=== PATIENT | female | born 1970 | race Caucasian/White ===

== ENCOUNTER 2017-02-02 12:12 | Outpatient (CLI) | payer OTHER | END 2017-02-02 12:13 | disposition home or self-care (01) | DX: M22.42 Chondromalacia patellae, left knee (principal); M25.462 Effusion, left knee ==

== ENCOUNTER 2017-02-13 16:35 | Outpatient (CLI) | payer OTHER | END 2017-02-13 16:36 | disposition home or self-care (01) | DX: M25.562 Pain in left knee (principal) ==

== ENCOUNTER 2020-02-25 09:59 | Outpatient (CLI) | payer BC ==
--- NOTE | 2020-02-25 17:48 | XRAY Report ---
Reason: RIGHT FOOT PAIN Procedure Date: 02/25/2020 Accession Number: [id number] / [id number] Procedure: XR - Foot 3 View RT CPT Code: Final Report FULL RESULT: EXAM: RIGHT FOOT RADIOGRAPHY EXAM DATE: 02/25/2020 10:13 AM. CLINICAL HISTORY: RIGHT FOOT PAIN. COMPARISON: FOOT 3 VIEW RT 07/28/2013 2:36 PM. TECHNIQUE: 3 views. FINDINGS: Bones: 2 Elmo screws of the distal right fifth metatarsal shaft suggesting a healed varus osteotomy, as before. Mild flattening of the lateral aspect of the fifth metatarsal head suggesting prior bunionectomy, unchanged. Bipartite medial and lateral first metatarsal sesamoids. No fracture or focal bone lesion. Moderate well-corticated nonspecific plantar calcaneal enthesophyte, similar to before. Joints: Normal. No subluxations. Soft Tissues: Normal. No significant soft tissue swelling. IMPRESSION: 1. No significant change from 2012. 2. Nonspecific moderate plantar calcaneal enthesophyte, as before. 3. Healed valgus osteotomy and bunionectomy at the right fifth metatarsal, as before. RADIA
== END 2020-02-25 10:00 | disposition home or self-care (01) ==
LOC: DI 09:59
PROVIDERS: ATTEND Internal Medicine
DX: M77.31 Calcaneal spur, right foot (principal)

== ENCOUNTER 2021-07-13 12:35 | Outpatient (CLI) | payer BC ==
--- NOTE | 2021-07-13 13:08 | XRAY Report ---
PROCEDURE: Chest 2 View X-Ray INDICATIONS: COUGH TECHNIQUE: 2 views of the chest. COMPARISON: None. FINDINGS: Surgical changes and devices: None. Lungs and pleura: No pleural effusions or pneumothorax. Lungs are clear. Mediastinum: Mediastinal contours are normal. Heart size is normal. Bones and chest wall: No suspicious bony abnormalities. Soft tissues appear unremarkable. IMPRESSION: No acute cardiopulmonary abnormality. Reviewed by: Bijan Muhammad MD on 07/13/2021 1:06 PM PDT Approved by: Bijan Muhammad MD on 07/13/2021 1:06 PM PDT Station ID: [id number]
== END 2021-07-13 12:36 | disposition home or self-care (01) ==
LOC: DI 12:35
PROVIDERS: ATTEND Internal Medicine
DX: R05 Cough (principal)

== ENCOUNTER 2024-05-22 12:36 | Outpatient (CLI) | payer BC ==
[2024-05-22 13:05] LABS: CREATININE 0.7 mg/dL (0.6-1.3)
== END 2024-05-22 12:37 | disposition home or self-care (01) ==
LOC: LAB 12:36
PROVIDERS: ATTEND Internal Medicine
DX: Z51.81 Encounter for therapeutic drug level monitoring (principal); Z79.899 Other long term (current) drug therapy
CPT/HCPCS: 36415; 82565

== ENCOUNTER 2024-05-22 13:24 | Outpatient (CLI) | payer BC ==
[2024-05-22] MEDS ORDERED: DIATRIZOATE MEGLU/DIATRIZO SOD 30 ML BOTTLE PO ONE (13:30)
[2024-05-22] MEDS ORDERED: iohexoL-300 100 ML VIAL ONE ×2 (13:30→14:59)
--- NOTE | 2024-05-22 15:42 | CT Report ---
PROCEDURE: Abdomen/Pelvis W INDICATIONS: ABDOMINAL PAIN CONTRAST: 100ml omni 300 TECHNIQUE: After the administration of intravenous and oral contrast, a CT scan of the abdomen and pelvis was pe rformed. Images were recorded and evaluated at appropriate window settings. Reformats: coronal and sa gittal. For radiation dose reduction, the following was used: automated exposure control, adjustment of mA and/or kV according to patient size. COMPARISON: None. FINDINGS: Image quality: Diagnostic. Lower chest: Unremarkable. Liver: No solid mass. Gallbladder: No radiopaque stones or wall thickening. Biliary tree: No intrahepatic or extrahepatic dilation, accounting for age. Spleen: No splenomegaly. Pancreas: No pancreatic ductal dilation. Adrenals: No adrenal nodule. Kidneys and ureters: No hydronephrosis. No renal cystic lesion which requires follow up. No solid mas s. Stomach, bowel and peritoneum: There is no bowel obstruction. Postsurgical changes are seen from prio r gastric bypass. There is no abnormal bowel wall thickening or mesenteric fat stranding. No abscess collection. No free fluid of free air. Lymph nodes: No central or retroperitoneal adenopathy. Vessels: No infrarenal aortic aneurysm. Patent portal vein. PELVIS Reproductive organs: Unremarkable. Bladder: No abnormal wall thickening, accounting for underdistention. Pelvic lymph nodes: No pelvic adenopathy by size criteria. Bones: No aggressive osseous abnormality. Other: No significant ventral or inguinal hernia. IMPRESSION: 1. Prior gastric bypass. No bowel obstruction or abnormal bowel wall thickening. No abscess collectio n. No free fluid of free air. 2. No finding to explain patient's symptoms. Reviewed by: Raheem Benitez MD on 05/22/2024 3:41 PM PDT Approved by: Raheem Benitez MD on 05/22/2024 3:41 PM PDT Station ID: [id number]
== END 2024-05-22 13:25 | disposition home or self-care (01) ==
LOC: DI 13:24
PROVIDERS: ATTEND Internal Medicine
DX: R10.9 Unspecified abdominal pain (principal); Z98.84 Bariatric surgery status; Z51.81 Encounter for therapeutic drug level monitoring; Z79.899 Other long term (current) drug therapy
CPT/HCPCS: 74177; Q9963; Q9967; 36415; 82565

== ENCOUNTER 2024-05-26 08:51 | Outpatient (CLI) | payer BC ==
--- NOTE | 2024-05-27 10:50 | Mammography Report ---
BILATERAL DIGITAL SCREENING MAMMOGRAM 3D/2D: 05/26/2024 CLINICAL: Routine screening. Comparison is made to exam dated: 01/27/2015 mammogram - [facility]. Both breasts are almost entirely fatty (category a/<25% glandular tissue). No significant masses, calcifications, or other findings are seen in either breast. There has been no significant interval change. IMPRESSION: NEGATIVE There is no mammographic evidence of malignancy. A 1 year screening mammogram is recommended. Based on the Tyrer Cuzick model (a risk assessment model) the patient's lifetime risk is 5.7% and her 10 year risk is 1.6%. According to the ACR, ACS, and NCCN guidelines, an annual breast MRI exam jaylan g with mammogram is recommended if the patient's lifetime risk is 20% or greater. This exam was interpreted at Station ID: [id number]. NOTE: For mammograms, a report in lay terms will be sent to the patient. Approximately 15% of breast malignancies will not be visualized mammographically. In the management of a palpable breast mass, a negative mammogram must not discourage biopsy of a clinically suspicious lesion. Electronically Signed By: Beatriz zacarias/tara:05/26/2024 10:03:49 letter sent: No_Letter ACR BI-RADS Category 1: Negative 3341F PARENCHYMAL PATTERN: (F) - The breast(s) demonstrate(s) diffuse fatty replacement. BI-RADS CATEGORY: (1) - 1 RECOMMENDATION: (ANNUAL) - Recommend routine annual screening mammography. [id number] 1 year screening LATERALITY: (B)
== END 2024-05-26 08:52 | disposition home or self-care (01) ==
LOC: DI 08:51
PROVIDERS: ATTEND Internal Medicine
DX: Z12.31 Encounter for screening mammogram for malignant neoplasm of breast (principal)

== ENCOUNTER 2024-09-20 12:04 | Inpatient (IN) ==
[2024-09-20] MEDS: ONDANSETRON 4 MG/2 ML VIAL IVP STA (12:47)
[2024-09-20] MEDS: SODIUM CHLORIDE 0.9% 1,000 ML IV STA (12:48)
[2024-09-20 12:53] LABS: BASOPHILS % (AUTO) 0.3 %; EOSINOPHILS # (AUTO) 0.1 10^3/uL (0.0-0.7); EOSINOPHILS % (AUTO) 0.8 %; LYMPHOCYTES # (AUTO) 1.4 10^3/uL (1.5-3.5); LYMPHOCYTES % (AUTO) 12.8 %; MEAN CORPUSCULAR HEMOGLOBIN 25.3 pg (27.0-31.0); MEAN CORPUSCULAR HGB CONC 30.1 g/dL (32.0-36.0); MEAN CORPUSCULAR VOLUME 84.1 fL (81.0-99.0); MEAN PLATELET VOLUME 9.9 fL (7.9-10.8); MONOCYTES # (AUTO) 0.6 10^3/uL (0.0-1.0); MONOCYTES % (AUTO) 5.4 %; NEUTROPHILS # (AUTO) 8.9 10^3/uL (1.5-6.6); NEUTROPHILS % (AUTO) 79.6 %; NRBC ABSOLUTE COUNT (AUTO) 0.03 x10^3/uL; NUCLEATED RED BLOOD CELLS AUTO 0.3 /100WBC; PLT - PLATELET COUNT 311 10^3/uL (130-450); RED CELL DISTRIBUTION WIDTH 17.2 % (12.0-15.0); WHITE BLOOD COUNT 11.1 x10^3/uL (4.8-10.8)
--- NOTE | 2024-09-20 12:54 | ED Physician Documentation ---
History of Present Illness Stated complaint Stated Complaint: DIZZINESS,NAUSEA Chief complaint Chief Complaint: Neuro History obtained from History obtained from: Patient Additonal information Additional information: The patient comes to the emergency department chief complaint of lightheadedness and generalized weakness for the last couple of days. She states that she was recently diagnosed with shingles and that she has been on medications for this over the last for 7 days. She states however that after a couple of days she felt as though she was having a bad reaction to the meds. She states she just f elt dizzy and like she was "not right". She did not have any itching, rash, or swelling. She does not know exactly which medication she was on but she was taken off of the med she had been prescribed for shingles and told to take Benadryl. The patient states she is just continue to feel worse and worse, however. She feels like she looks pale and she states that she can even walk her dog this morning because she was too tired and dizzy. The patient does note that 2 nights ago, she vomited about 3 times and noticed dark red blood in the vomitus. She states she then had diarrhea for about 24 hours and this also was suspicious to her because it was a dark blackish maroon color. She states she has no other history of anything like this. She has not been vomiting or having any diarrhea otherwise since. She is not on any anticoagulants. She has never had any issues with anemia previously. No history of any sort of bleeding disorder or internal bleeding. No other complaints at this time. Patient denies chest pain. Meds/Allgy Home Medications Ambulatory Orders Medication Instructions Recorded Confirmed amlodipine 5 mg tablet 5 mg PO DAILY 12/09/13 09/18/24 carvedilol 3.125 mg tablet 3.125 mg PO BID 12/09/13 09/18/24 acyclovir 800 mg tablet 800 mg PO 5XD 7 days #35 tabs 09/17/24 09/18/24 cyclosporine 0.05 % eye drops 1 drp ophthalmic (eye) Q12H 09/17/24 09/18/24 (Restasis MultiDose) ondansetron 4 mg disintegrating 4 mg PO Q6H PRN nausea and 09/18/24 09/18/24 tablet vomiting 7 days #28 tabs Allergies Allergies Allergy/AdvReac Type Severity Reaction Status Date / Time ceftriaxone Allergy Anaphylaxis Verified 09/20/24 12:21 cephalexin Allergy Anaphylaxis Verified 09/20/24 12:21 valacyclovir Allergy Hives Verified 09/20/24 12:21 [facility] Social History Social History Smoking Status: Never smoker Do you dip or chew tobacco?: No Relationship: Exam Constitutional no apparent distress The patient is in no distress but appears extremely pale. She is able to sit herself up in bed but does so with noted effort. HENMT normocephalic, head/scalp atraumatic, external nose normal and oral mucous membranes normal Eyes EOMs intact bilaterally and no scleral icterus Neck/C-Spine visual inspection normal and supple Respiratory breath sounds equal bilaterally, normal respiratory effort and clear to auscultation bilaterally Cardiovascular normal heart rate noted, regular rhythm noted and no edema 3 out of 6 systolic murmur Gastrointestinal abdomen normal to inspection, abdomen soft to palpation, nontender to palpation and nondistended Genitourinary no CVA tenderness Extremities normal to inspection Neurology Alert, grossly intact Psychiatry mental status grossly normal Skin Marked pallor of skin generally with pale nailbeds. Results Vitals Vitals: Vital Signs - 24 hr 09/20/24 12:19 09/20/24 12:21 09/20/24 12:51 Temperature 36.8 C Temperature Source Pulse Rate 80 79 Pulse Rate [Monitoring electrodes] Respiratory Rate 26 H 21 Blood Pressure 104/90 92/62 Blood Pressure [Brachial artery] O2 Saturation 89 L 99 Oxygen Delivery Method Nasal Cannula O2 Source Room air Nasal cannula If not protocol: Oxygen Flow, liters/minute 2 2 Sedation scale Pain Intensity 7 6 09/20/24 14:11 09/20/24 14:21 09/20/24 14:36 Temperature 36.4 C L 36.3 C L Temperature Source Temporal Artery Scan Temporal Artery Scan Pulse Rate 79 Pulse Rate [Monitoring electrodes] 80 79 Respiratory Rate 19 17 16 Blood Pressure 100/73 Blood Pressure [Brachial artery] 108/58 L 110/66 O2 Saturation 99 97 98 Oxygen Delivery Method O2 Source Nasal cannula Nasal cannula Nasal cannula If not protocol: Oxygen Flow, liters/minute 2 2 2 Sedation scale 0-Fully awake 0-Fully awake Pain Intensity 0 0 0 Oxygen O2 Source Nasal cannula EKG (time done) 1231: EKG releavant findings:: EKG personally interpreted by author of this note. Relevant findings are: Rate: Rate (enter#) (77) Rhythm: NSR [place]: Normal Intervals: Normal MT QRS: QRS normal Ischemia: Normal ST segments Compare to prior EKG: Old EKG unavailable Computer interpretation: Agree with computer Labs Labs: Laboratory Tests 09/20/24 09/20/24 12:30 13:00 WBC 11.1 H RBC 1.70 L Hgb 4.3 L* Hct 14.3 L* MCV 84.1 MCH 25.3 L MCHC 30.1 L RDW 17.2 H Plt Count 311 MPV 9.9 Neut # (Auto) 8.9 H Lymph # (Auto) 1.4 L [place] # (Auto) 0.6 Eos # (Auto) 0.1 Baso # (Auto) 0.0 Absolute Nucleated RBC 0.03 Nucleated RBC % 0.3 Sodium 133 L Potassium 4.3 Chloride 101 Carbon Dioxide 27 Anion Gap 5.0 L BUN 21 H Creatinine 0.8 Estimated GFR (MDRD) 75 L Glucose 182 H Calcium 8.1 L Total Bilirubin 0.3 AST 12 ALT 7 L Alkaline Phosphatase 55 Total Protein 5.2 L Albumin 3.3 Globulin 1.9 L Albumin/Globulin Ratio 1.7 Lipase 38 Blood Type O POSITIVE Blood Type Recheck O POSITIVE Antibody Screen NEGATIVE Crossmatch IS Only See Detail Rads (name of study) chest XR: Relevant Findings:: Final report received and See rad report Interpretation: neg PD Medical Decision Making ED course ED course: The patient was worked up with laboratory studies and initially given IV fluids and placed on oxygen as she did present with an oxygen saturation of 89%. Chest x-ray was also ordered. The patient CBC showed a hemoglobin of 4.3 with a normal white blood cell count and platelet count. Rectal exam was performed and patient had grossly melanotic stool with a positive bedside guaiac positive test performed by myself. The remainder of the patient's workup was unremarkable including negative chest x-ray. EKG showed normal sinus rhythm. The patient was started on a transfusion in the ED. I discussed the case with Dr. Lamb of surgery who stated that she would consult on the patient and probably plan to do EGD and colonoscopy. I discussed the case with the on-call hospitalist who agreed to admit the patient to her service. I have informed the patient of the findings and she is agreeable to the plan. Discharge Plan Discharge Patient Disposition: [facility] DC/Xfer Condition: Serious Clinical Impression: Severe anemia, Upper gastrointestinal bleed Prescriptions: No Action amlodipine 5 MG tablet 5 mg PO DAILY carvedilol 3.125 MG tablet 3.125 mg PO BID Restasis MultiDose 0.05 % drops 1 drp ophthalmic (eye) Q12H acyclovir 800 mg tablet 800 mg PO 5XD 7 Days Qty: 35 2RF Rx Instructions: space evenly during waking hours diphenhydramine HCl [Benadryl] 25 mg capsule 50 mg PO ONCE Qty: 2 0RF ondansetron 4 mg tablet,disintegrating 4 mg PO ONCE Qty: 1 0RF ondansetron 4 mg tablet,disintegrating 4 mg PO Q6H PRN (Reason: nausea and vomiting) 7 Days Qty: 28 0RF Rx Instructions: stay well hydrated Print Language: Nepalese
[2024-09-20 12:55] LABS: HCT - HEMATOCRIT 14.3 % (37.0-47.0); HGB - HEMOGLOBIN 4.3 g/dL (12.0-16.0)
--- NOTE | 2024-09-20 13:04 | XRAY Report ---
PROCEDURE: XR Chest 1V INDICATIONS: dyspnea TECHNIQUE: One view of the chest was acquired. COMPARISON: 07/13/2021 FINDINGS: Surgical changes and devices: None. Lungs and pleura: No pleural effusions or pneumothorax. Lungs are clear. Mediastinum: Mediastinal contours appear normal. Heart size is normal. Bones and chest wall: No suspicious bony lesions. Age-appropriate degenerative changes are seen. O verlying soft tissues appear unremarkable. IMPRESSION: Portable chest within normal limits for age. Reviewed by: Frankie Granados MD on 09/20/2024 12:02 PM [facility] Approved by: Frankie Granados MD on 09/20/2024 12:02 PM [facility] Station ID: [id number]
[2024-09-20 13:11] LABS: ALBUMIN 3.3 g/dL (3.2-5.5); ALBUMIN/GLOBULIN RATIO 1.7 (1.0-2.2); BILIRUBIN,TOTAL 0.3 mg/dL (0.2-1.0); CALCIUM 8.1 mg/dL (8.5-10.3); CREATININE 0.8 mg/dL (0.6-1.3); POTASSIUM 4.3 mmol/L (3.5-4.5); TOTAL PROTEIN 5.2 g/dL (6.4-8.9)
[2024-09-20] MEDS: PANTOPRAZOLE 80 MG in SODIUM CHLORIDE 0.9% 100ML 100 ML IV STA (14:22)
--- NOTE | 2024-09-20 15:05 | HISTORY & PHYSICAL EXAMINATION ---
Chief Complaint <Mahesh Mcnulty - Last Filed: 09/20/24 15:05> Chief Complaint Chief Complaint: nasuea and vomitting History of Present Illness <Mahesh Mcnulty - Last Filed: 09/20/24 15:05> Admitted From Admitted From:: Emergency room History Obtained From Records Reviewed: Expanse History obtained from: Patient Exam Limitations: none History of Present Illness HPI Comment/Other: 53 y/o female was admitted from the ER for lightheadedness and weakness for few days. Pt states she recently was diagnosed with shingles and she's taking acyclovir for treatment for the last 7 days. She started feeling weak though out last few days. She reports vomiting dark red blood on and then noticed dark red blood in her stool for the last 3 days. She doesn't have a history of smoking, excessive drinking, blooding disorder nor internal blooding. No SOB, no cough, no chest pain. 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 <Prosper Worthy MD - Last Filed: 09/20/24 15:29> History of Present Illness HPI Comment/Other: 53 y/o female with a history of hypertension was admitted from the ER for lightheadedness and weakness for few days. Patient states she recently was diagnosed with shingles after going to Urgent care. She received acyclovir on . She started feeling weak throughout the last few days. She reports vomiting dark red blood on (reports three episodes of emesis), which has now resolved. Following that, she noticed dark tarry stool for the last three days. She notes loose stools, multiple episodes (3-4/day) yesterday and today. She doesn't have a history of smoking, excessive drinking. She has no recent NSAID use, including Motrin, Aleve, etc. She has no history of GERD. She has not had a colonoscopy in the past. No SOB, no cough, no chest pain. 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 Meds/Allgy <Mahesh Mcnulty - Last Filed: 09/20/24 15:05> Home Medications Ambulatory Orders Medication Instructions Recorded Confirmed amlodipine 5 mg tablet 5 mg PO DAILY 12/09/13 09/18/24 carvedilol 3.125 mg tablet 3.125 mg PO BID 12/09/13 09/18/24 acyclovir 800 mg tablet 800 mg PO 5XD 7 days #35 tabs 09/17/24 09/18/24 cyclosporine 0.05 % eye drops 1 drp ophthalmic (eye) Q12H 09/17/24 09/18/24 (Restasis MultiDose) ondansetron 4 mg disintegrating 4 mg PO Q6H PRN nausea and 09/18/24 09/18/24 tablet vomiting 7 days #28 tabs Allergies Allergies Allergy/AdvReac Type Severity Reaction Status Date / Time ceftriaxone Allergy Anaphylaxis Verified 09/20/24 12:21 cephalexin Allergy Anaphylaxis Verified 09/20/24 12:21 valacyclovir Allergy Hives Verified 09/20/24 12:21 PFSH <Mahesh Mcnulty - Last Filed: 09/20/24 15:05> Medical History Medical History (Updated 09/20/24 @ 15:21 by Prosper Worthy MD) HTN (hypertension) Social History Social History Smoking Status: Never smoker Do you dip or chew tobacco?: No Relationship: POLST Patient has POLST: No POLST Status: Full Code Review of Systems <Mahesh Mcnulty - Last Filed: 09/20/24 15:05> Constitutional Reports: Fatigue Musculoskeletal Denies: Extremity pain Neurological Reports: General weakness Endocrine Reports: Fatigue <Prosper Worthy MD - Last Filed: 09/20/24 15:29> Constitutional Reports: Weakness and Poor appetite; Denies: Fever or Chills Eyes Denies: Pain, Irritation, Blurry vision, Field loss, Vision loss or Change in vision Ears, nose, mouth, and throat Reports: Dry mouth; Denies: Ear pain, Ear discharge, Hearing loss, Hearing aids, Post nasal drip or Throat swelling Cardiovascular Reports: lightheadedness; Denies: Irregular heart rate, chest pain, palpitations, edema, swelling of feet/ankles, Syncope or shortness of breath with exertion Respiratory Denies: Shortness of breath, Cough or Sputum production Gastrointestinal Reports: Nausea, Vomiting, Maikel blood emesis, Diarrhea, Rectal bleeding and Blood in stool; Denies: Abdominal pain, Abdominal distention, Poor appetite, Bile emesis, Coffee grounds in vomit, Heartburn, Constipation or Rectal pain Integumentary/Breast Reports: Rash (left thorax rash); Denies: Itching or Dryness Neurological Denies: Focal weakness, Weakness in extremities or Numbness in extremities Psychiatric Denies: Depression or Anxiety Hematologic/Lymphatic Reports: Anemia; Denies: Easy bruising or Easy bleeding Allergic/Immunologic Denies: Hives, Throat swelling or Tongue swelling <Prosper Worthy MD - Last Filed: 09/20/24 15:29> Prior Level of Functionality: Fully independent prior to admission. Exam <[facility]hesh [facility] - Last Filed: 09/20/24 15:05> Exam Pt not in any acute distress,looks her stated age, she looks extremely pale. Constitutional no apparent distress HENMT normocephalic and oral mucous membranes abnormal (oral mucous membrane and tongue looks dry ) Eyes PERRL and EOMs intact bilaterally Neck/C-Spine visual inspection normal Lymph no lymphadenopathy noted Chest inspection of chest normal Respiratory breath sounds equal bilaterally, normal respiratory effort and no wheezes Cardiovascular normal heart rate noted and regular rhythm noted Gastrointestinal abdomen normal to inspection, abdomen soft to palpation and nontender to palpation Genitourinary no CVA tenderness Back/Pelvis spine normal to inspection Extremities normal to inspection and normal to palpation 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 Skin skin color abnormal (She skin was extremely pale ) and rash noted (rash was notices on the left side of her flank, consistent with her hx) <Prosper Worthy MD - Last Filed: 09/20/24 15:29> Eyes conjunctivae abnormal (pallor) Respiratory no rales Gastrointestinal nondistended and no masses Neurology no movement abnormality noted, no focal motor deficit noted, no sensory deficits noted and speech normal Psychiatry oriented x3, thought process normal, cooperative and affect normal Skin rash noted (vesicular rash on L thorax,2x2cm) and no jaundice Conclusion/Plan <Mahesh Carleneliana - Last Filed: 09/20/24 15:05> Problem List (1) GI bleed: Qualifiers: GI bleed type/associated pathology: unspecified gastrointestinal hemorrhage type Qualified Code(s): K92.2 - Gastrointestinal hemorrhage, unspecified (2) Severe anemia: Plan: Her hemoglobin is at 4.3 on admission Plan: we will give her 2 unit of blood and continue to monitor (3) Leukocytosis: Qualifiers: Leukocytosis type: other Qualified Code(s): D72.828 - Other elevated white blood cell count (4) Shingles: Plan: rash was noticed on her left flank she has been taking a valacyclovir since 09/17. She attributes her issue to this mediation Plan: discontinue home medication Qualifiers: Herpes zoster complications: disseminated zoster Qualified Code(s): B 02.7 - Disseminated zoster (5) HTN (hypertension): Plan: Today her blood pressure is low at 108/58 Plan: We will discontinue her home medication for HTN Qualifiers: Hypertension type: primary hypertension Qualified Code(s): I10 - Essential (primary) hypertension Lab Results Lab results reviewed: Yes 09/20/24 12:30 09/20/24 12:30 Diagnostic Imaging Results Diagnostic Imaging Results: positive Final report reviewed EKG Results EKG Interpreted Independently: No <Prosper Worthy MD - Last Filed: 09/20/24 15:29> Problem List (1) GI bleed: Plan: - Patient reports vomiting bright red blood and dark tarry stool. - 2 units of blood ordered. H&H ordered every 8 hours. Transfuse for hemoglobin greater than 7. - 2 large bore IVs, fluid resuscitation, strict NPO. - Continue Protonix 40 mg BID IV. - Spoke with general surgeon, Dr Lamb, plan to perform EGD for further evaluation tomorrow. - DVT prophylaxis - SCDs at this time. (2) Severe anemia: Plan: - Due to above. Hb 4.3. 2 units of blood ordered. H&H ordered every 8 hours. Transfuse for hemoglobin greater than 7. - Iron studies ordered. (3) Leukocytosis: Plan: - Likely reactive to above process. Continue to trend. (4) Shingles: Plan: - Rash was noticed on her left flank she has been taking a valacyclovir since 09/17. She attributes her issue to this mediation. - Patient would like to discontinue home medication, continue to monitor. (5) HTN (hypertension): Plan: - Today her blood pressure is low at 108/58 in setting of active blood loss. Hold home Coreg and amlodipine at this time. Core Measures <Mahesh Mengmeng - Last Filed: 09/20/24 15:05> Anticipated LOS I expect patient to be DC'd or transferred within 96 hours.: No DVT/VTE - Prophylaxis VTE/DVT Device ordered at admit?: Yes Stroke - Rehab Assessment Rehab services assessment to be ordered?: Yes <Prosper Worthy MD - Last Filed: 09/20/24 15:29> DVT/VTE - Prophylaxis VTE/DVT Prophylaxis med ordered at admit?: No Not Ordered - Medical Reason: Contraindicated (GI bleed) Stroke - Rehab Assessment Rehab services assessment to be ordered?: No AMI - Statin at Admit Aspirin Prescribed on Admit: No Not Ordered - Medical Reason: Not indicated
--- NOTE | 2024-09-20 16:24 | PHARMACY PROGRESS NOTE ---
Best Possible Medication History Admit Date and Time: 09/20/24 [id number] Home Medications Medication Instructions Recorded Confirmed Type carvedilol 3.125 mg tablet 3.125 mg PO BID 12/09/13 09/20/24 History amlodipine 10 mg tablet 10 mg PO DAILY 09/20/24 09/20/24 History cyclosporine 0.05 % eye drops in a 1 drp ophthalmic (eye) BID 09/20/24 09/20/24 History dropperette Processed by: Pharmacy Medications reviewed in ED?: No Medication History completed: Yes Patient Interview: Completed Secondary Source(s): Pharmacy records and Insurance records [facility] Statement: As the person ultimately responsible for medication therapy, providers are able to order a medication from an existing home medication list in [facility] via the "Reconcile Routine" prior to Confirmation of that medication by manager support services. Such practice is discouraged except when the physician, in their clinical judgment, deems that a medical need exists for a medication without regard to previous use.
[2024-09-20] MEDS: LACTATED RINGERS 1,000 ML IV SCH (17:42)
[2024-09-20] MEDS: SODIUM CHLORIDE FLUSH 0.9% 10 ML SYRINGE IVP SCH (17:47)
--- NOTE | 2024-09-20 18:16 | CONSULTATION NOTE ---
History of Present Illness History of Present Illness HPI Comment/Other: 53yoF presented to the ED today for generalized weakness and lightheadedness, and on workup was subsequently found to be anemic to hgb 4 with recent history of hematemasis and dark tarry stools over the last 4 days. She had been treated for probable shingles (localized raised rash at left lateral rib cage, nontender) in the walk in clinic this past week, and she thought that her emesis was an allergic reaction to the valcyclovir. In the ED she had some soft SBPs into 90s-low 100s, no tachycardia, and initial SpO2 of 89. She was admitted to the hospitalist service for UGIB, started on IV protonix and 2U PRBC initiated (2nd unit going at my visit). She endorses feeling somewhat improved with the blood transfusion. She denies a history of GERD, heartburn or acid reflux, does not take antacids at home. She denies having epigastric pain now or in the past. It is a bit difficult to get a clear history from her, she denied taking any chronic medications to me, but she takes amlodipine and carvedilol, she denied surgeries to me other than a few foot surgeries, however on abdominal exam multiple laparoscopic scars were noted in the upper abdomen, at which point she endorsed a history of bariatric surgery in [place]. 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 She denies etoh or tobacco use, she endorses using only tylenol for pain, no NSAIDs. Denies a history of hematemesis in the past. [facility] Medical History Medical History (Updated 09/20/24 @ 18:08 by Ana Lamb DO) HTN (hypertension) Surgical History Surgical History (Updated 09/20/24 @ 18:08 by Ana Lamb DO) History of bariatric surgery History of foot surgery Social History Social History Smoking Status: Never smoker Second hand tobacco smoke exposure: No Do you dip or chew tobacco?: No Do you vape?: No Relationship: Level: Independent Do you feel safe in your home environment?: Yes Suffered physical, verbal, emotional, or financial abuse?: No POLST Patient has POLST: No POLST Status: Full Code Meds/Allgy Home Medications Ambulatory Orders Medication Instructions Recorded Confirmed carvedilol 3.125 mg tablet 3.125 mg PO BID 12/09/13 09/20/24 amlodipine 10 mg tablet 10 mg PO DAILY 09/20/24 09/20/24 cyclosporine 0.05 % eye drops in a 1 drp ophthalmic (eye) BID 09/20/24 09/20/24 dropperette sodium chloride 5 % eye ointment 1 applic ophthalmic (eye) QPM 09/20/24 09/20/24 ([place]) Allergies Allergies Allergy/AdvReac Type Severity Reaction Status Date / Time ceftriaxone Allergy Anaphylaxis Verified 09/20/24 12:21 cephalexin Allergy Anaphylaxis Verified 09/20/24 12:21 valacyclovir Allergy Hives Verified 09/20/24 12:21 Results Lab Results 09/20/24 12:30 09/20/24 12:30 Other Lab Results: Lab Results x24hrs 09/20/24 09/20/24 Range/Units 13:00 12:30 WBC 11.1 H (4.8-10.8) x10^3/uL RBC 1.70 L (4.20-5.40) 10^6/uL Hgb 4.3 L* (12.0-16.0) g/dL Hct 14.3 L* (37.0-47.0) % MCV 84.1 (81.0-99.0) fL MCH 25.3 L (27.0-31.0) pg MCHC 30.1 L (32.0-36.0) g/dL RDW 17.2 H (12.0-15.0) % Plt Count 311 (130-450) 10^3/uL MPV 9.9 (7.9-10.8) fL Neut # (Auto) 8.9 H (1.5-6.6) 10^3/uL Lymph # (Auto) 1.4 L (1.5-3.5) 10^3/uL [place] # (Auto) 0.6 (0.0-1.0) 10^3/uL Eos # (Auto) 0.1 (0.0-0.7) 10^3/uL Baso # (Auto) 0.0 (0.0-0.1) 10^3/uL Absolute Nucleated RBC 0.03 x10^3/uL Nucleated RBC % 0.3 /100WBC Sodium 133 L (135-145) mmol/L Potassium 4.3 (3.5-4.5) mmol/L Chloride 101 (101-111) mmol/L Carbon Dioxide 27 (21-32) mmol/L Anion Gap 5.0 L (6-13) BUN 21 H (6-20) mg/dL Creatinine 0.8 (0.6-1.3) mg/dL Estimated GFR (MDRD) 75 L (>89) Glucose 182 H (74-104) mg/dL Calcium 8.1 L (8.5-10.3) mg/dL Total Bilirubin 0.3 (0.2-1.0) mg/dL AST 12 (10-42) IU/L ALT 7 L (10-60) IU/L Alkaline Phosphatase 55 (42-121) IU/L Total Protein 5.2 L (6.4-8.9) g/dL Albumin 3.3 (3.2-5.5) g/dL Globulin 1.9 L (2.1-4.2) g/dL Albumin/Globulin Ratio 1.7 (1.0-2.2) Lipase 38 (11-82) U/L Blood Type O POSITIVE Blood Type Recheck O POSITIVE Antibody Screen NEGATIVE Crossmatch IS Only See Detail Conclusion and Plan Diagnosis Diagnosis: 1) Symptomatic anemia 2) GI Bleed, presumed Upper GI Bleed 3) Bariatric history status Plan Plan: 53yoF with history of bariatric surgery (possible RNYGB, details as yet unknown) with symptomatic severe anemia - hgb of 4 with fatigue, lightheadedness - and recent hematemesis and dark tarry stools within the past 4 days. Mild hypoxia with SpO2 of 89 and transient hypotension with SBP of 92 in ED. Now admitted to hospitalist service and being transfused 2U PRBC with plan for repeat hgb thereafter. Based on her true foregut anatomy, potential etiology of UGIB could be peptic ulcer, marginal ulcer, gastritis, enteritis, mass, or other. Will evaluate with EGD once resuscitated. - has been started on IV protonix - agree/continue - agree with resuscitation with PRBC - after appropriate resuscitation will evaluate further with EGD for status of her post-bariatric anatomy as well as etiology of GIB - plan for 7AM tomorrow - maintain NPO until EGD - also recommend comprehensive bariatric lab profile to evaluate for other vitamin/nutritional deficiencies Ana Lamb DO, FACS General Surgeon, [facility] Review of Systems Status of ROS: 10 or more systems reviewed and unremarkable except as noted in history and below Exam Constitutional no apparent distress HENMT normocephalic Eyes EOMs intact bilaterally and conjunctivae normal Neck/C-Spine visual inspection normal Respiratory normal respiratory effort Cardiovascular regular rhythm noted Gastrointestinal abdomen soft to palpation, nontender to palpation, nondistended and no masses upper abdominal laparoscopic scars c/w foregut surgery Extremities normal to inspection Neurology no movement abnormality noted Psychiatry oriented x3 and affect abnormality noted (flat) and other (restrictive with information) Skin skin color abnormal (pale) and rash noted (vesicular) (4cm, linear, lateral lower rib cage)
[2024-09-20] MEDS ORDERED: CARBOXYMETHYLCELLULOSE OPHTH DROPS EACHEYE PRN (18:56)
[2024-09-20 19:57] LABS: HCT - HEMATOCRIT 22.6 % (37.0-47.0); HGB - HEMOGLOBIN 7.1 g/dL (12.0-16.0)
[2024-09-20] MEDS: PANTOPRAZOLE 40 MG VIAL IVP SCH (20:27)
[2024-09-20] MEDS: SODIUM CHLORIDE FLUSH 0.9% 10 ML SYRINGE IVP PRN (20:28)
--- NOTE | 2024-09-20 20:31 | ANESTHESIA PROCEDURE NOTE ---
Pre-Anesthesia VS, & Labs Diagnosis Surgical Diagnosis:: gi bleed Procedure Procedure: EGD Vitals Vital Signs: Temp Pulse Resp BP Pulse Ox O2 Flow Rate 37.3 C 87 20 147/92 H 96 2 09/20/24 20:07 09/20/24 19:10 09/20/24 19:10 09/20/24 19:10 09/20/24 19:10 09/20/24 16:09 NPO NPO: >8 hours Is Patient ?: No Lab Results Current Lab Results: Laboratory Tests 09/20/24 19:53: Hgb 7.1 L, Hct 22.6 L 09/20/24 13:00: Blood Type O POSITIVE, Antibody Screen NEGATIVE, Crossmatch IS Only See Detail 09/20/24 12:30: WBC 11.1 H, RBC 1.70 L, Hgb 4.3 L*, Hct 14.3 L*, MCV 84.1, MCH 25.3 L, MCHC 30.1 L, RDW 17.2 H, Plt Count 311, MPV 9.9, Neut # (Auto) 8.9 H, L ymph # (Auto) 1.4 L, [place] # (Auto) 0.6, Eos # (Auto) 0.1, Baso # (Auto) 0.0, Absolute Nucleated RBC 0.03, Nucleated RBC % 0.3, Sodium 133 L, Potassium 4.3, Chloride 101, Carbon Dioxide 27, Anion Gap 5.0 L, BUN 21 H, Creatinine 0.8, E stimated GFR (MDRD) 75 L, Glucose 182 H, Calcium 8.1 L, Total Bilirubin 0.3, AST 12, ALT 7 L, Alkaline Phosphatase 55, Total Protein 5.2 L, Albumin 3.3, Globulin 1.9 L, Albumin/Globulin Ratio 1.7, Lipase 38, Blood Type Recheck O POSITIVE 09/20/24 19:53 09/20/24 12:30 Meds/Allgy Home Medications Ambulatory Orders Medication Instructions Recorded Confirmed carvedilol 3.125 mg tablet 3.125 mg PO BID 12/09/13 09/20/24 amlodipine 10 mg tablet 10 mg PO DAILY 09/20/24 09/20/24 cyclosporine 0.05 % eye drops in a 1 drp ophthalmic (eye) BID 09/20/24 09/20/24 dropperette sodium chloride 5 % eye ointment 1 applic ophthalmic (eye) QPM 09/20/24 09/20/24 ([place]) Allergies Allergies Allergy/AdvReac Type Severity Reaction Status Date / Time ceftriaxone Allergy Anaphylaxis Verified 09/20/24 12:21 cephalexin Allergy Anaphylaxis Verified 09/20/24 12:21 valacyclovir Allergy Hives Verified 09/20/24 12:21 [facility] Medical History Medical History (Updated 09/20/24 @ 18:08 by Ana Lamb DO) HTN (hypertension) Surgical History Surgical History (Updated 09/20/24 @ 18:08 by Ana Lamb DO) History of bariatric surgery History of foot surgery Social History Social History Smoking Status: Never smoker Second hand tobacco smoke exposure: No Do you dip or chew tobacco?: No Do you vape?: No Relationship: Level: Independent Do you feel safe in your home environment?: Yes Suffered physical, verbal, emotional, or financial abuse?: No POLST Patient has POLST: No POLST Status: Full Code Anesthesia Exam (Expanded) Exam General: Alert, Oriented x3 and Cooperative Mouth Opening: Greater than 4 Fingerbreadths Neck Mobility: Normal Mallampati classification: II Thyromental Distance: greater than 6 cm Respiratory: Lungs clear Cardiovascular: Regular rate Plan Problem List (1) GI bleed: Plan: - Patient reports vomiting bright red blood and dark tarry stool. - 2 units of blood ordered. H&H ordered every 8 hours. Transfuse for hemoglobin greater than 7. - 2 large bore IVs, fluid resuscitation, strict NPO. - Continue Protonix 40 mg BID IV. - Spoke with general surgeon, Dr Lamb, plan to perform EGD for further evaluation tomorrow. - DVT prophylaxis - SCDs at this time. Qualifiers: GI bleed type/associated pathology: unspecified gastrointestinal hemorrhage type Qualified Code(s): K92.2 - Gastrointestinal hemorrhage, unspecified (2) Severe anemia: Plan: - Due to above. Hb 4.3. 2 units of blood ordered. H&H ordered every 8 hours. Transfuse for hemoglobin greater than 7. - Iron studies ordered. (3) Leukocytosis: Plan: - Likely reactive to above process. Continue to trend. Qualifiers: Leukocytosis type: other Qualified Code(s): D72.828 - Other elevated white blood cell count (4) Shingles: Plan: - Rash was noticed on her left flank she has been taking a valacyclovir since 09/17. She attributes her issue to this mediation. - Patient would like to discontinue home medication, continue to monitor. Qualifiers: Herpes zoster complications: disseminated zoster Qualified Code(s): B 02.7 - Disseminated zoster (5) HTN (hypertension): Plan: - Today her blood pressure is low at 108/58 in setting of active blood loss. Hold home Coreg and amlodipine at this time. Qualifiers: Hypertension type: primary hypertension Qualified Code(s): I10 - Essential (primary) hypertension Plan Anesthesia Type: Total IV Consent for Procedure(s) Verified and Reviewed: Yes Code Status: Attempt Resuscitation ASA Classification ASA classification: 3-Severe systemic disease Is this case an emergency?: Yes
[2024-09-20] MEDS ORDERED: PROPOFOL 200 MG/20 ML VIAL IVP ONE ×2 (20:32→21:20)
[2024-09-20] MEDS ORDERED: LIDOCAINE-MPF 2% 5 ML VIAL ONE (20:32)
[2024-09-20] MEDS ORDERED: MIDAZOLAM 2 MG/2 ML VIAL ONE (20:34)
--- NOTE | 2024-09-20 21:47 | OPERATIVE REPORT ---
Operative Report General Admit Date: 09/20/24 Procedure Data: Operation Date: 09/20/24 21:00 Proposed Procedures p Esophagogastroduodenoscopy(Not Applicable) - Ana Lamb DO Actual Procedures p Esophagogastroduodenoscopy with biopsies(Not Applicable) - Ana Lamb DO Pre-Op Diagnosis: GI BLEED, ANEMIA Anesthesia Type General Case Staff Anesthesia Provider: Sarah Little Case Times Into Recovery: 09/20/24 21:22 Procedure Start: 09/20/24 21:01 Procedure End: 09/20/24 21:17 Time out: 09/20/24 21:00 Pre-Op Diagnosis: UGIB Post Op Diagnosis: s/p RNY gastric bypass with marginal ulcer and concern for barretts Procedure Note Estimated Blood Loss (ml): 3 Pathology: 1) Gastric pouch mucosa adjacent to GJ 2) GEJ/rule out barretts Indications: 53F with history of RNYGB admitted for acute anemia (HGB 4) after hematemesis Findings: 1) s/p RNY Gastric Bypass 2) Pouch size 8cm long and 8-10cm wide 3) Concern for Barretts esophagus, with one short segment salmon colored tongue of mucosa at the GEJ (biopsied) 4) Marginal ulcer - not actively bleeding 5) Area of heaped up edematous mucosa within pouch, adjacent to GJ anastomosis - concerning for GG fistula (biopsied) Complications: None. Other Other Information/Narrative: Impressions: - The marginal ulcer could be the source of bleeding, though it was not actively bleeding at EGD. - Visualized changes concerning for barretts esophagus - Marginal ulcer and [place] colored mucosa are due to increased acid exposure within the gastric pouch - Increased acid exposure can be due to: GG fistula, H Pylori, NSAIDs, smoking, or diabetes - The edematous mucosa adjacent to the GJ anastomosis may suggest a GG fistula - The jejunal bernice limb is normal looking distal to the marginal ulcer. - The esophagus is normal looking proximal to the salmon colored tongue. Recommendations: - The marginal ulcer should be treated with 3-6 months of high dose PPI + Carafate 1g QID, followed by repeat endoscopy to observe for healing - an UGI and/or CT abdomen/pelvis with oral contrast is needed to evaluate for gastro-gastric fistula (between remnant stomach and pouch) - f/u Biopsies (r/o barretts, r/o h pylori) Formal EGD report from endoscopy software will be uploaded separately. Ana Lamb DO, FACS General Surgeon, [facility]
[2024-09-20] MEDS ORDERED: NALOXONE 0.4 MG/ML VIAL IVP PRN (21:53)
[2024-09-20] MEDS ORDERED: METOCLOPRAMIDE 10 MG/2 ML VIAL IVP PRN (21:53)
[2024-09-20] MEDS ORDERED: MORPHINE 2 MG/ML CARPUJECT IVP PRN (21:53)
[2024-09-20] MEDS ORDERED: ePHEDrine 50 MG/ML VIAL IVP PRN (21:53)
[2024-09-20] MEDS ORDERED: ONDANSETRON 4 MG/2 ML VIAL IVP PRN (21:53)
[2024-09-20] MEDS ORDERED: fentaNYL 100 MCG/2 ML VIAL IVP PRN (21:53)
[2024-09-20] MEDS ORDERED: HYDROmorphone 0.5 MG/0.5 ML SYRINGE IVP PRN (21:53)
[2024-09-20] MEDS ORDERED: ATROPINE ABBOJECT 1 MG/10 ML SYRINGE IVP PRN (21:53)
--- NOTE | 2024-09-20 21:54 | ANESTHESIA POST OP EVALUATION ---
Anesthesia Post Eval Post Anesthesia Eval Vitals: Last Vital Signs Temp 37.3 C 09/20/24 21:46 Pulse 83 09/20/24 21:46 Resp 16 09/20/24 21:46 BP 101/55 L 09/20/24 21:46 Pulse Ox 94 09/20/24 21:46 O2 Flow Rate 2 09/20/24 16:09 CV Function Including HR & BP: Stable Pain Control: Satisfactory Nausea & Vomiting: Negative Mental Status: Baseline Respiratory Status: Airway Patent Hydration Status: Satisfactory Anesthesia Complications: None
[2024-09-20] MEDS ORDERED: LACTATED RINGERS 1,000 ML IV SCH (22:00)
[2024-09-20 22:23] LABS: HCT - HEMATOCRIT 19.5 % (37.0-47.0); HGB - HEMOGLOBIN 6.2 g/dL (12.0-16.0)
[2024-09-20] MEDS: SUCRALFATE 1 GM/10 ML UDC PO SCH (22:59)
[2024-09-20] MEDS ORDERED: iohexoL-300 100 ML VIAL ONE (23:50)
[2024-09-20] MEDS ORDERED: DIATRIZOATE MEGLU/DIATRIZO SOD 30 ML BOTTLE PO ONE (23:50)
[2024-09-21] MEDS: DIATRIZOATE MEGLU/DIATRIZO SOD 30 ML BOTTLE PO ONE (00:46)
[2024-09-21] MEDS: iohexoL-300 100 ML VIAL IVP ONE (00:48)
--- NOTE | 2024-09-21 02:04 | CT Report ---
PROCEDURE: CT Angio Abdomen/Pelvis INDICATIONS: s/p RNYGB, r/o GG fistula with oral contrast CONTRAST: 100 cc Omnipaque 300 TECHNIQUE: After the administration of intravenous contrast, 2.5 mm thick sections acquired from the diaphragm t o the symphysis. 10 mm maximum-intensity projection (MIP) reformats were then acquired. For radiati on dose reduction, the following was used: automated exposure control, adjustment of mA and/or kV ac cording to patient size. COMPARISON: CT abdomen pelvis 05/22/2024 FINDINGS: Image quality: Excellent. VESSELS: Aorta demonstrates there is a hemodynamically significant stenosis, vascular occlusion or aneurysmal dilation. CHEST: Lung bases and heart: Unremarkable. ABDOMEN: Liver: No solid mass. Gallbladder and biliary tree: Unremarkable Spleen: No splenomegaly. Pancreas: No pancreatic ductal dilation. Adrenals: No adrenal nodule. Kidneys and ureters: No hydronephrosis. No renal cystic lesion which requires follow up. No solid mas s. Bowel and peritoneum: No bowel distension. No pathologic free fluid. Contrast is noted within the sto mach as well as scattered portions of small bowel. There is no visualized colon or extravasation of c ontrast in the small or large bowel. No definitive fistula is identified. Lymph nodes: No central or retroperitoneal adenopathy. PELVIS Reproductive organs: Unremarkable. Bladder: No abnormal wall thickening, accounting for underdistension. Pelvic lymph nodes: No pelvic adenopathy by size criteria. Bones: No aggressive osseous abnormality. Other: No significant ventral or inguinal hernia. IMPRESSION: No definitive fistula is identified. However, it is noted that there is limited contrast within the s mall bowel. Reviewed by: Lisbet Bob MD on 09/21/2024 2:03 AM PST Approved by: Lisbet Bob MD on 09/21/2024 2:03 AM PST Station ID: [id number]
[2024-09-21 05:31] LABS: HCT - HEMATOCRIT 23.2 % (37.0-47.0); HGB - HEMOGLOBIN 7.5 g/dL (12.0-16.0); MEAN CORPUSCULAR HEMOGLOBIN 27.6 pg (27.0-31.0); MEAN CORPUSCULAR HGB CONC 32.3 g/dL (32.0-36.0); MEAN CORPUSCULAR VOLUME 85.3 fL (81.0-99.0); RED BLOOD COUNT 2.72 10^6/uL (4.20-5.40); RED CELL DISTRIBUTION WIDTH 16.1 % (12.0-15.0); WHITE BLOOD COUNT 7.2 x10^3/uL (4.8-10.8)
[2024-09-21 05:51] LABS: CALCIUM 8.4 mg/dL (8.5-10.3); CREATININE 0.7 mg/dL (0.6-1.3); POTASSIUM 3.9 mmol/L (3.5-4.5)
--- NOTE | 2024-09-21 10:55 | PROVIDER PROGRESS NOTE ---
Subjective Subjective Subjective: Patient is doing well. She had her EGD this morning without any complications. She denies any fevers, chills. She has no episodes of nausea or vomiting since being admitted. She has also had no bowel movement since being admitted. Of note, patient does state that she did have a gastric bypass surgery in [place], although she is unable to quantify when this was, although states it was a few years ago. Current Medications Current Medications Current Medications: Current Medications Generic Name Dose Route Start Last Admin Trade Name Freq PRN Reason Stop Dose Admin Carboxymethylcellulose 1 drops 09/20/24 18:56 Carboxymethylcellulose Ophth Drops EACHEYE Q4HR PRN Dry Eye Lactated Ringer's 1,000 mls @ 100 mls/hr 09/20/24 16:09 09/21/24 01:27 Lr IV 100 mls/hr .Q10H ELISEO Administration Pantoprazole Sodium 40 mg 09/20/24 21:00 09/21/24 08:37 Pantoprazole 40 Mg Vial IVP 40 mg BID ELISEO Administration Restasis 1 each 09/21/24 09:00 09/21/24 08:37 EACHEYE 1 each BID ELISEO Administration Sodium Chloride 10 ml 09/20/24 16:09 09/20/24 20:28 Sodium Chloride Flush 0.9% 10 Ml Syringe IVP 10 ml PRN PRN Administration NEEDED PER PROVIDER ORDERS Sodium Chloride 10 ml 09/20/24 17:00 09/21/24 08:38 Sodium Chloride Flush 0.9% 10 Ml Syringe IVP 10 ml 0100,0900,1700 ELISEO Administration Sucralfate 1 gm 09/20/24 22:10 09/21/24 06:39 Sucralfate 1 Gm/10 Ml Udc PO 1 gm 0700,1100,1600,2200 ELISEO Administration Objective Vital Signs/Intake & Output Reviewed Vital Signs: Yes Vital Signs: Vital Signs x48h Temp Pulse Pulse Resp BP BP Pulse Ox 09/21/24 09:40 98.1 F 78 16 125/88 95 09/21/24 04:00 98.2 F 75 16 128/78 97 09/21/24 03:10 98.1 F 76 16 110/70 97 Intake & Output: Intake & Output 09/19/24 09/20/24 09/21/24 09/22/24 05:59 05:59 05:59 05:59 Intake Total 3423 / 3423 Balance 3423 / 3423 Weight (kg) 82 kg Objective General Appearance: positive No acute distress and Alert; negative Anxious Eyes Bilateral: positive Normal inspection, PERRL and EOMI ENT: positive ENT inspection nml, Pharynx nml and No signs of dehydration Neck: positive Nml inspection, Thyroid nml and No JVD Respiratory: positive Chest non-tender, No respiratory distress and Breath sounds nml; negative Wheezes, Rales or Rhonchi Cardiovascular: positive Regular rate & rhythm, No murmur and No gallop Abdomen: positive Non-tender, No organomegaly, Nml bowel sounds and No distention; negative Guarding, Rebound, Hepatomegaly, Splenomegaly or Mass Back: positive Nml inspection; negative CVA tenderness (R) or CVA tenderness (L) Skin: positive Color nml, No rash, Dry and Pallor Extremities: positive Non-tender, Full ROM and No pedal edema Neurologic/Psychiatric: positive Oriented x3, Motor nml and Mood/affect nml Lab Results 09/21/24 04:40 09/21/24 04:40 Other Labs: Lab Results x24hrs 09/21/24 09/20/24 09/20/24 Range/Units 04:40 22:07 19:53 WBC 7.2 (4.8-10.8) x10^3/uL RBC 2.72 L (4.20-5.40) 10^6/uL Hgb 7.5 L 6.2 L* 7.1 L (12.0-16.0) g/dL Hct 23.2 L 19.5 L* 22.6 L (37.0-47.0) % MCV 85.3 (81.0-99.0) fL MCH 27.6 (27.0-31.0) pg MCHC 32.3 (32.0-36.0) g/dL RDW 16.1 H (12.0-15.0) % Plt Count 195 (130-450) 10^3/uL MPV 10.0 (7.9-10.8) fL Neut # (Auto) (1.5-6.6) 10^3/uL Lymph # (Auto) (1.5-3.5) 10^3/uL [place] # (Auto) (0.0-1.0) 10^3/uL Eos # (Auto) (0.0-0.7) 10^3/uL Baso # (Auto) (0.0-0.1) 10^3/uL Absolute Nucleated RBC x10^3/uL Nucleated RBC % /100WBC Sodium 136 (135-145) mmol/L Potassium 3.9 (3.5-4.5) mmol/L Chloride 107 (101-111) mmol/L Carbon Dioxide 26 (21-32) mmol/L Anion Gap 3.0 L (6-13) BUN 12 (6-20) mg/dL Creatinine 0.7 (0.6-1.3) mg/dL Estimated GFR (MDRD) 87 L (>89) Glucose 98 (74-104) mg/dL Calcium 8.4 L (8.5-10.3) mg/dL Iron 26 L (50-212) ug/dL TIBC 374 (250-450) ug/dL % Saturation 7 L (20-50) % Transferrin 267 (203-362) mg/dL Total Bilirubin (0.2-1.0) mg/dL AST (10-42) IU/L ALT (10-60) IU/L Alkaline Phosphatase (42-121) IU/L Total Protein (6.4-8.9) g/dL Albumin (3.2-5.5) g/dL Globulin (2.1-4.2) g/dL Albumin/Globulin Ratio (1.0-2.2) Lipase (11-82) U/L Vitamin B12 426 (180-914) pg/mL Folate 29.4 (5.90 - >24.8) ng/mL Blood Type Blood Type Recheck Antibody Screen Crossmatch IS Only 09/20/24 09/20/24 Range/Units 13:00 12:30 WBC 11.1 H (4.8-10.8) x10^3/uL RBC 1.70 L (4.20-5.40) 10^6/uL Hgb 4.3 L* (12.0-16.0) g/dL Hct 14.3 L* (37.0-47.0) % MCV 84.1 (81.0-99.0) fL MCH 25.3 L (27.0-31.0) pg MCHC 30.1 L (32.0-36.0) g/dL RDW 17.2 H (12.0-15.0) % Plt Count 311 (130-450) 10^3/uL MPV 9.9 (7.9-10.8) fL Neut # (Auto) 8.9 H (1.5-6.6) 10^3/uL Lymph # (Auto) 1.4 L (1.5-3.5) 10^3/uL [place] # (Auto) 0.6 (0.0-1.0) 10^3/uL Eos # (Auto) 0.1 (0.0-0.7) 10^3/uL Baso # (Auto) 0.0 (0.0-0.1) 10^3/uL Absolute Nucleated RBC 0.03 x10^3/uL Nucleated RBC % 0.3 /100WBC Sodium 133 L (135-145) mmol/L Potassium 4.3 (3.5-4.5) mmol/L Chloride 101 (101-111) mmol/L Carbon Dioxide 27 (21-32) mmol/L Anion Gap 5.0 L (6-13) BUN 21 H (6-20) mg/dL Creatinine 0.8 (0.6-1.3) mg/dL Estimated GFR (MDRD) 75 L (>89) Glucose 182 H (74-104) mg/dL Calcium 8.1 L (8.5-10.3) mg/dL Iron (50-212) ug/dL TIBC (250-450) ug/dL % Saturation (20-50) % Transferrin (203-362) mg/dL Total Bilirubin 0.3 (0.2-1.0) mg/dL AST 12 (10-42) IU/L ALT 7 L (10-60) IU/L Alkaline Phosphatase 55 (42-121) IU/L Total Protein 5.2 L (6.4-8.9) g/dL Albumin 3.3 (3.2-5.5) g/dL Globulin 1.9 L (2.1-4.2) g/dL Albumin/Globulin Ratio 1.7 (1.0-2.2) Lipase 38 (11-82) U/L Vitamin B12 (180-914) pg/mL Folate (5.90 - >24.8) ng/mL Blood Type O POSITIVE Blood Type Recheck O POSITIVE Antibody Screen NEGATIVE Crossmatch IS Only See Detail Diagnostic Imaging Diagnostic Imaging Results: positive Final report reviewed Assessment/Plan Problem List (1) GI bleed: Impression: Patient with 4 episodes of hematemesis, with dark tarry stools prior to presentation. Hemoglobin down to 4.3 from 12 on admission. Received 3 units of PRBCs, stable around 7. Continue to trend every 8 hours. Patient loaded with Protonix 80 mg IV, continue 40 mg twice daily. Will also need Carafate on discharge. Continue IV fluid resuscitation, 2 large-bore IVs. General Surgery following - spoke with Dr. Lamb regarding plan - EGD completed, shows marginal ulcer, recommends treating with 3 to 6 months of high- dose PPI and Carafate 1 g 4 times daily, followed by repeat endoscopy. Additionally, upper GI series has been ordered to evaluate for gastrogastric fistula between remnant stomach and pouch; this was negative. Will advance diet to CLD. Qualifiers: GI bleed type/associated pathology: unspecified gastrointestinal hemorrhage type Qualified Code(s): K92.2 - Gastrointestinal hemorrhage, unspecified (2) Severe anemia: Impression: Likely due to above, management as above. Iron studies indicative of severe iron deficiency. Received 3 units of blood, with 250 mg of iron in it each. Will continue on oral iron supplementation on discharge. Vitamin B12, folate within normal limits. Vitamin A, D, E, K also ordered, pending. (3) Leukocytosis: Impression: Resolved. Likely reactive to above process versus recent herpes zoster infection. Continue to monitor. Qualifiers: Leukocytosis type: other Qualified Code(s): D72.828 - Other elevated white blood cell count (4) Shingles: Impression: Patient like to hold off on Valtrex, acyclovir at this time. Not in any pain or discomfort. Qualifiers: Herpes zoster complications: disseminated zoster Qualified Code(s): B 7 - Disseminated zoster (5) HTN (hypertension): Impression: Continue to hold amlodipine and Coreg in setting of active GI bleed and borderline blood pressures. Qualifiers: Hypertension type: primary hypertension Qualified Code(s): I10 - Essential (primary) hypertension
[2024-09-21] MEDS: BARIUM SULFATE 135 ML BOTTLE PO ONE (13:40)
[2024-09-21] MEDS: BARIUM SULFATE 355 ML BOTTLE PO SCH (13:42)
[2024-09-21] MEDS: BARIUM SULFATE 700 MG TABLET PO ONE (13:43)
[2024-09-21] MEDS: BARIUM SULFATE 355 ML BOTTLE PO ONE (17:55)
[2024-09-21] MEDS: EYE EACHEYE SCH (21:31)
[2024-09-21] MEDS: SODIUM CHLORIDE 5% EACHEYE SCH (21:31)
--- NOTE | 2024-09-21 21:56 | XRAY Report ---
PROCEDURE: FL UGI W/Air INDICATIONS: s/p RNYGB, rule out GG fistula COMPARISON: CT abdomen and pelvis dated 09/21/2024 and 05/22/2024 FINDINGS: Esophagus: Esophageal mucosa is normal on air-contrast views. On single-contrast views, there is no rmal esophageal peristalsis with occasional episodes of minimal tertiary contractions. No strictures , extrinsic mass effects, or diverticula. No hiatal hernia. There is normal transit of a calibrated barium tablet through the esophagus. There is minimal narrowing at the gastroesophageal junction po ssibly related to mild edema which may be suggested on retrospective review of CT. This results in mi nimal patulous distention of the distal esophagus. Stomach: There are postsurgical changes of gastric bypass. The stomach pouch fills with ingested con trast without evidence for extraluminal extravasation of contrast or definite ulcer as noted during e ndoscopy. No suspicious intraluminal filling defects. There is no opacification of the bypassed porti on of the stomach/remnant stomach or opacification of the biliopancreatic limb at the level of the di stal stomach/duodenum/proximal jejunum. No fluoroscopic evidence for gastrogastric fistula. Normal ap pearance of the mucosal folds of the opacified small bowel. Of note, comparison with CT images demons trates opacification of nondilated or thickened small bowel of the efferent limb to the distal small bowel/ileum with some opacification of the more distal segments of the jejunum involving the biliopan creatic limb. IMPRESSION: Postsurgical changes of gastric bypass procedure without evidence for gastrogastric fistula, bowel ob struction, or suspicious masses. No fluoroscopic evidence for marginal ulcer noted during endoscopy. Findings were reviewed in person with Dr. Lamb. Reviewed by: Chandana Parkinson MD on 09/21/2024 9:54 PM PST Approved by: Chandana Parkinson MD on 09/21/2024 9:54 PM PST Station ID: [id number]
[2024-09-21 22:18] LABS: HCT - HEMATOCRIT 21.6 % (37.0-47.0); HGB - HEMOGLOBIN 7.1 g/dL (12.0-16.0)
--- NOTE | 2024-09-21 23:07 | PROVIDER PROGRESS NOTE ---
Subjective General Admit Date: 09/20/24 Other Other Information/Narrative: EGD completed last night with marginal ulcer and salmon colored tongue concerning for barretts, both suggestive of reflux gastritis. Further imaging with CT abd/pel (angio + oral contrast) and UGI today to evaluate further (see below). No n/v, no pain. HD normal, AF. Required 3rd U PRBC this AM after drop in hgb 7 to 6 after EGD, but responded back to 7 and stayed stable throughout the day. Review of Systems Status of ROS: 10 or more systems reviewed and unremarkable except as noted in history and below Exam Constitutional normal general appearance and no apparent distress HENMT normocephalic Eyes EOMs intact bilaterally and conjunctivae normal Neck/C-Spine visual inspection normal Respiratory normal respiratory effort Cardiovascular regular rhythm noted Gastrointestinal abdomen soft to palpation, nontender to palpation, nondistended and no masses upper abdominal laparoscopic scars c/w foregut surgery Extremities normal to inspection Neurology no movement abnormality noted Psychiatry oriented x3 and affect abnormality noted (flat) and other (restrictive with information) Skin skin color abnormal (pale) and rash noted (vesicular) (4cm, linear, lateral lower rib cage) Impression/Plan Problem List (1) GI bleed: Plan: 54yoF with history of bariatric surgery years ago in [place], admitted with with symptomatic severe anemia in setting of UGIB. No s/p 3U PRBC and hgb stable at 7 (from 4), HDN. EGD completed with evidence of marginal ulcer but no active GIB or stigmata of recent bleeding at ulcer. Bleeding or ulceration within the remnant stomach is theoretically possible, but CTA abdomen shows a decompressed remnant stomach without any active extravasation. Active LGIB seems unlikely given hematemesis in days prior to presentation. - OK to ADAT - clinically stabilized, defer to IM for hospital discharge Qualifiers: GI bleed type/associated pathology: unspecified gastrointestinal hemorrhage type Qualified Code(s): K92.2 - Gastrointestinal hemorrhage, unspecified (2) History of bariatric surgery: Plan: Details of bariatric surgery unknown on presentation. After EGD and careful review of the CTA Abd/Pel and UGI/SBFT with Dr. Doyle in radiology, my assessment is that she had a gastric pouch creation (roughly [id number] pouch size), with gastric remnant in situ and reconstruction with a jejunal loop via Billroth II anatomy, rather than a Cara en Y reconstruction. This results in exposure of the gastric pouch to gastrobiliarypancreatic secretions via the afferent limb. Additionally based on studying the rads images subsequent to the EGD: suspect that the area of heaped up edematous mucosa within pouch, adjacent to GJ david stomosis may represent extrinsic compression on the pouch from the mesentery of the jejunal loop. 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 Suspect bile exposure from afferent limb of Billroth II jejunal loop reconstruction. Other potential etiologies of increased acid exposure in the pouch: - There is no evidence of a GG fistula (between the gastric pouch and the gastric remnant) on imaging. - biopsies pending for H pylori - patient denies NSAIDs and smoking - no known dx of diabetes (will check h a1c) - The marginal ulcer should be treated with 3-6 months of high dose PPI + Carafate 1g QID, followed by repeat endoscopy to observe for healing (f/u with me in general surgery for EGD) - f/u Biopsies (r/o barretts, r/o h pylori) - If marginal ulcer and suspected barretts do not improve with medical management, surgical revision would be recommended. Bile/Acid diversion from the pouch could be achieved via a Cody anastomosis, which could be completed at [facility]. More advanced revision such as conversion to a RNY would require referral to Bariatric surgeon. (4) Screening for colon cancer: Plan: 54F with no prior colonoscopy, with active referral to surgery for endoscopy that has not been processed. Given hematemesis, do not suspect LGI source of GIB this admission. Denies prior blood in stool/changes in BM. - plan for screening colonoscopy when doing repeat EGD in next 8-12 weeks Ana Lamb DO, FACS General Surgeon, [facility]
[2024-09-22 05:37] LABS: HCT - HEMATOCRIT 23.6 % (37.0-47.0); HGB - HEMOGLOBIN 7.6 g/dL (12.0-16.0); MEAN CORPUSCULAR HEMOGLOBIN 27.9 pg (27.0-31.0); MEAN CORPUSCULAR HGB CONC 32.2 g/dL (32.0-36.0); MEAN CORPUSCULAR VOLUME 86.8 fL (81.0-99.0); MEAN PLATELET VOLUME 9.3 fL (7.9-10.8); RED BLOOD COUNT 2.72 10^6/uL (4.20-5.40); RED CELL DISTRIBUTION WIDTH 16.7 % (12.0-15.0); WHITE BLOOD COUNT 5.8 x10^3/uL (4.8-10.8)
[2024-09-22 06:06] LABS: CALCIUM 9.1 mg/dL (8.5-10.3); CREATININE 0.7 mg/dL (0.6-1.3)
[2024-09-22 09:16] VITALS: O2SAT 93
[2024-09-22 10:05] LABS: ESTIMATED AVERAGE GLUCOSE 100 mg/dL (70-100); HEMOGLOBIN A1c% 5.1 % (4.27-6.07)
--- NOTE | 2024-09-22 10:59 | PROVIDER PROGRESS NOTE ---
Subjective General Admit Date: 09/20/24 Other Other Information/Narrative: HDN, AF, no further blood transfusions after the 3rd unit yesterday morning. No further emesis or hematemesis, has not had a BM since admission (so no further melena). Feels and looks MUCH better in terms of color and overall energy. Hgb 7.0 -> 7.1 -> 7.6 over last 24hours. Discussed with the patient in detail this morning, including drawn diagrams, the endoscopic/radiographic findings from this admission and my interpretation of her surgical anatomy as well as my concern for acid exposure in the gastric pouch. I emphasized that the pouch really needs to be protected from acid to avoid further complications, and that first line treatment is pharmacotherapy and second line treatment would be revisional surgery. She understands, will comply with PPI+Carafate and follow up with me for repeat EGD to assess pouch healing (see further details below in plan). Review of Systems Status of ROS: 10 or more systems reviewed and unremarkable except as noted in history and below Exam Constitutional normal general appearance and no apparent distress HENMT normocephalic Eyes EOMs intact bilaterally and conjunctivae normal Neck/C-Spine visual inspection normal Respiratory normal respiratory effort Cardiovascular normal heart rate noted Gastrointestinal abdomen soft to palpation, nontender to palpation, nondistended and no masses upper abdominal laparoscopic scars c/w foregut surgery Extremities normal to inspection Neurology no movement abnormality noted Psychiatry oriented x3 and affect abnormality noted (flat) and other (restrictive with information) Skin skin color abnormal (pale) and rash noted (vesicular) (4cm, linear, lateral lower rib cage) Impression/Plan Problem List (1) GI bleed: Plan: 54yoF with history of bariatric surgery years ago in [place], admitted with with symptomatic severe anemia in setting of UGIB. Received todal of 3U PRBC and now hgb stable at 7.6 (from 4), HDN. EGD completed with evidence of marginal ulcer but no active GIB or stigmata of recent bleeding at ulcer. Tolerating PO intake now. Bleeding or ulceration within the remnant stomach is theoretically possible, but CTA abdomen shows a decompressed remnant stomach without any active extravasation. Active LGIB seems unlikely given hematemesis in days prior to presentation. - clinically stabilized, anticipate discharge by IM service today Qualifiers: GI bleed type/associated pathology: unspecified gastrointestinal hemorrhage type Qualified Code(s): K92.2 - Gastrointestinal hemorrhage, unspecified (2) History of bariatric surgery: Plan: Details of bariatric surgery unknown on presentation. After EGD and careful review of the CTA Abd/Pel and UGI/SBFT with Dr. Doyle in radiology, my assessment is that she had a gastric pouch creation (roughly [id number] pouch size), with gastric remnant in situ and reconstruction with a jejunal loop via Billroth II anatomy, rather than a Cara en Y reconstruction. This results in exposure of the gastric pouch to gastrobiliarypancreatic secretions via the afferent limb. Additionally based on studying the rads images subsequent to the EGD: suspect that the area of heaped up edematous mucosa within pouch, adjacent to GJ anastomosis may represent extrinsic compression on the pouch from the mesentery of the jejunal loop. - comprehensive bariatric lab profile to evaluate for other vitamin/nutritional deficiencies competed by hospitalist - patient should establish retirement follow up with PCP for monitoring of b ariatric status (3) Reflux gastritis: Plan: Gastric pouch with salmon colored mucosa at distal esophagus c/f barrets and marginal ulcer at GEJ - both indicitive of reflux gastritis. Suspect bile exposure from afferent limb of Billroth II jejunal loop reconstruction. Other potential etiologies of increased acid exposure in the pouch: - There is no evidence of a GG fistula (between the gastric pouch and the gastric remnant) on imaging. - biopsies pending for H pylori - patient denies NSAIDs and smoking - no known dx of diabetes (will check h a1c) - The marginal ulcer should be treated with 3-6 months of high dose PPI + Carafate 1g QID, followed by repeat endoscopy to observe for healing (f/u with me in general surgery for EGD) - f/u Biopsies (r/o barretts, r/o h pylori) - If marginal ulcer and suspected barretts do not improve with medical management, surgical revision would be recommended. Bile/Acid diversion from the pouch could be achieved via a Cody anastomosis, which could be completed at [facility]. More advanced revision such as conversion to a RNY would require referral to Bariatric surgeon. (4) Screening for colon cancer: Plan: 54F with no prior colonoscopy, with active referral to surgery for endoscopy t hat has not been processed. Given hematemesis, do not suspect LGI source of GIB this admission. Denies prior blood in stool/changes in BM. - plan for screening colonoscopy when doing repeat EGD in next 8-12 weeks Ana Lamb DO, FACS General Surgeon, [facility]
[2024-09-22 14:08] LABS: HCT - HEMATOCRIT 22.1 % (37.0-47.0)
--- NOTE | 2024-09-22 14:18 | Discharge Summary ---
"Discharge Summary Admit Date: 09/20/24 Discharge Date: 09/22/24 Discharging Provider: Dr. Stubbs Code Status: Attempt Resuscitation Discharge Facility Name: home DIAGNOSES Admission Diagnoses: Upper GI bleed Blood loss anemia History of gastric bypass Leukocytosis Discharge Diagnoses with Status of Each Condition: Marginal ulcer on EGD Transfusion of blood products, anemia resolved Leukocytosis, most likely reactive, resolved HPI History of Present Illness: Patient is a 53-year-old female with a history of hypertension who presents with fatigue, nausea, as well as diarrhea. On , patient went to urgent care for rash on her left thoracic region. She was diagnosed with shingles, and sent home with valacyclovir. She continued to feel poorly. On evening, she had 2-3 episodes of vomiting. She noted bright red blood in these. Her vomiting subsided, however, she started to have diarrhea. She had 3-4 episodes daily, each with bright red blood. She also started feeling fatigued, lightheaded, as well as tired. 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 She has not had a colonoscopy in the past. She denies any NSAID use, including ibuprofen, Motrin, Aleve. When she uses pain medications, she uses Tylenol. She denies any alcohol or tobacco use. She does not have a history of GERD. Past medical history: Hypertension Medications: Coreg, amlodipine Allergies: Rocephin, cephalexin, valacyclovir Family history: Nonpertinent Surgical history: None Social history: Denies any alcohol, tobacco, recreational drug use. 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 Physical exam notable for conjunctival pallor. Heart regular rate and rhythm, lung exam with no adventitious breath sounds. Skin notable for small vesicular rash on left thorax, as well as diffuse pallor. CONSULTS | PROCEDURES Consultations: Surgery: Procedures: EGD Discussed with the patient in detail this morning, including drawn diagrams, the endoscopic/radiographic findings from this admission and my interpretation of her surgical anatomy as well as my concern for acid exposure in the gastric pouch. I emphasized that the pouch really needs to be protected from acid to avoid further complications, and that first line treatment is pharmacotherapy and second line treatment would be revisional surgery. She understands, will comply with PPI+Carafate and follow up with me for repeat EGD to assess pouch healing (see further details below in plan). HOSPITAL COURSE Hospital Course: (1) GI bleed: Impression: Patient with 4 episodes of hematemesis, with dark tarry stools prior to presentation. Hemoglobin down to 4.3 from 12 on admission. Received 3 units of PRBCs, stable around 7. Continue to trend every 8 hours. Patient loaded with Protonix 80 mg IV, continue 40 mg twice daily. Will also need Carafate on discharge. Continue IV fluid resuscitation, 2 large-bore IVs. General Surgery following - spoke with Dr. Lamb regarding plan - EGD completed, shows marginal ulcer, recommends treating with 3 to 6 months of high- dose PPI and Carafate 1 g 4 times daily, followed by repeat endoscopy. Additionally, upper GI series has been ordered to evaluate for gastrogastric fistula between remnant stomach and pouch; this was negative. Will advance diet to CLD. Qualifiers: GI bleed type/associated pathology: unspecified gastrointestinal hemorrhage type Qualified Code(s): K92.2 - Gastrointestinal hemorrhage, unspecified (2) Severe anemia: Impression: Likely due to above, management as above. Iron studies indicative of severe iron deficiency. Received 3 units of blood, with 250 mg of iron in it each. Will continue on oral iron supplementation on discharge. Vitamin B12, folate within normal limits. Vitamin A, D, E, K also ordered, pending. (3) Leukocytosis: Impression: Resolved. Likely reactive to above process versus recent herpes zoster infection. Continue to monitor. Qualifiers: Leukocytosis type: other Qualified Code(s): D72.828 - Other elevated white blood cell count (4) Shingles: Impression: Patient like to hold off on Valtrex, acyclovir at this time. Not in any pain or discomfort. Qualifiers: Herpes zoster complications: disseminated zoster Qualified Code(s): B 02.7 - Disseminated zoster (5) HTN (hypertension): Impression: Continue to hold amlodipine and Coreg in setting of active GI bleed and borderline blood pressures. Qualifiers: Hypertension type: primary hypertension Qualified Code(s): I10 - Essential (primary) hypertension (1) GI bleed: Plan: 54yoF with history of bariatric surgery years ago in [place], admitted with with symptomatic severe anemia in setting of UGIB. Received todal of 3U PRBC and now hgb stable at 7.6 (from 4), HDN. EGD completed with evidence of marginal ulcer but no active GIB or stigmata of recent bleeding at ulcer. Tolerating PO intake now. Bleeding or ulceration within the remnant stomach is theoretically possible, but CTA abdomen shows a decompressed remnant stomach without any active extravasation. Active LGIB seems unlikely given hematemesis in days prior to presentation. - clinically stabilized, anticipate discharge by IM service today Per surgery: GI bleed type/associated pathology: unspecified gastrointestinal hemorrhage type Qualified Code(s): K92.2 - Gastrointestinal hemorrhage, unspecified (2) History of bariatric surgery: Plan: Details of bariatric surgery unknown on presentation. After EGD and careful review of the CTA Abd/Pel and UGI/SBFT with Dr. Doyle in radiology, my assessment is that she had a gastric pouch creation (roughly [id number] pouch size), with gastric remnant in situ and reconstruction with a jejunal loop via Billroth II anatomy, rather than a Cara en Y reconstruction. This results in exposure of the gastric pouch to gastrobiliarypancreatic secretions via the afferent limb. Additionally based on studying the rads images subsequent to the EGD: suspect that the area of heaped up edematous mucosa within pouch, adjacent to GJ anastomosis may represent extrinsic compression on the pouch from the mesentery of the jejunal loop. - comprehensive bariatric lab profile to evaluate for other vitamin/nutritional deficiencies competed by hospitalist - patient should establish snf follow up with PCP for monitoring of bariatric status (3) Reflux gastritis: Plan: Gastric pouch with salmon colored mucosa at distal esophagus c/f barrets and marginal ulcer at GEJ - both indicitive of reflux gastritis. Suspect bile exposure from afferent limb of Billroth II jejunal loop reconstruction. Other potential etiologies of increased acid exposure in the pouch: There is no evidence of a GG fistula (between the gastric pouch and the gastric remnant) on imaging. - biopsies pending for H pylori - patient denies NSAIDs and smoking - no known dx of diabetes (will check h a1c) - The marginal ulcer should be treated with 3-6 months of high dose PPI + Carafate 1g QID, followed by repeat endoscopy to observe for healing (f/u with me in general surgery for EGD) - f/u Biopsies (r/o barretts, r/o h pylori) - If marginal ulcer and suspected barretts do not improve with medical management, surgical revision would be recommended. Bile/Acid diversion from the pouch could be achieved via a Cody anastomosis, which could be completed at [facility]. More advanced revision such as conversion to a RNY would require referral to Bariatric surgeon. (4) Screening for colon cancer: Plan: 54F with no prior colonoscopy, with active referral to surgery for endoscopy that has not been processed. Given hematemesis, do not suspect LGI source of GIB this admission. Denies prior blood in stool/changes in BM. - plan for screening colonoscopy when doing repeat EGD in next 8-12 weeks ALLERGIES Allergies Allergy/AdvReac Type Severity Reaction Status Date / Time ceftriaxone Allergy Anaphylaxis Verified 09/20/24 12:21 cephalexin Allergy Anaphylaxis Verified 09/20/24 12:21 valacyclovir Allergy Hives Verified 09/20/24 12:21 MEDICATIONS Ambulatory Orders Medication Instructions Recorded Confirmed carvedilol 3.125 mg tablet 3.125 mg PO BID 12/09/13 09/20/24 amlodipine 10 mg tablet 10 mg PO DAILY 09/20/24 09/20/24 cyclosporine 0.05 % eye drops in a 1 drp ophthalmic (eye) BID 09/20/24 09/20/24 dropperette sodium chloride 5 % eye ointment 1 applic ophthalmic (eye) QPM 09/20/24 09/20/24 ([place]) Patient Own Med [Patient Own 1 ea EACHEYE BID #1 mL 09/22/24 Medication] Patient Own Med [Patient Own 1 ea EACHEYE BID #1 mL 09/22/24 Medication] pantoprazole 20 mg tablet,delayed 20 mg PO BID #60 tabs 09/22/24 release (Protonix) sucralfate 1 gram tablet 1 g PO BID #60 tabs 09/22/24 PHYSICAL EXAM AT DISCHARGE General Appearance: positive No acute distress and Alert Eyes Bilateral: positive Normal inspection, PERRL and EOMI ENT: positive ENT inspection nml, Pharynx nml and No signs of dehydration Neck: positive Nml inspection, Thyroid nml and Trachea midline Respiratory: positive Chest non-tender and No respiratory distress Cardiovascular: positive Regular rate & rhythm and No murmur Abdomen: positive Non-tender and No organomegaly Skin: positive Color nml and No rash Extremities: positive Non-tender, Full ROM and No pedal edema Neurologic/Psychiatric: positive Oriented x3 and CN's nml (2-12) LABS 09/22/24 05:30 09/22/24 05:30 TIME SPENT Time Spent in Discharge (Minutes): 40 Discharge Plan Discharge Patient Disposition: 01 Home, Self Care Condition: Stable Medically Cleared Date:: 09/21/24 Prescriptions: New sucralfate 1 gram tablet 1 g PO BID Qty: 60 2RF pantoprazole [Protonix] 20 mg tablet,delayed release (DR/EC) 20 mg PO BID Qty: 60 2RF Patient Own Med [Patient Own Medication] 1 ea EACHEYE BID Qty: 1 0RF Patient Own Med [Patient Own Medication] 1 ea EACHEYE BID Qty: 1 0RF Continued carvedilol 3.125 MG tablet 3.125 mg PO BID amlodipine 10 mg tablet 10 mg PO DAILY Patient Comments: take 1 tablet by mouth at bedtime cyclosporine 0.05 % dropperette 1 drp ophthalmic (eye) BID Patient Comments: instill 1 drop into both eyes every 12 hours sodium chloride [[place]] 5 % ointment 1 applic ophthalmic (eye) QPM Rx Instructions: 1/4 inch to both eyes at bedtime Activity Restrictions: No Restrictions Diet: Soft Health Concerns: Please follow-up with To monitor the ulcer which was found on EGD. You will need a 2nd EGD within 6 weeks. There was no GI fistula on EGD. Continue Protonix and sucralfate untilyou see Dr. Lamb Assessment: Upper GI bleed Blood loss anemia Plan of Treatment: protonix bid sucralfate bid Print Language: French Patient Instructions: Surgery Anesthesia After, Bleeding Gastrointestinal, Anemia Stand Alone Forms: PCP List Follow-up Care: Parris Sylvester MD [Primary Care Provider] - Ana Lamb DO [Provider Admit Priv/Credential] - 10/05/24 10:30 am"
[2024-09-29 02:08] LABS: VITAMIN A SERUM 35.7 ug/dL (20.1-62.0); VITAMIN E (ALPHA TOCOPHEROL) 15.2 mg/L (7.0-25.1); VITAMIN E (GAMMA TOCOPHEROL) 0.5 mg/L (0.5-5.5)
== END 2024-09-22 14:55 | disposition home or self-care (01) | DRG 378 ==
LOC: ED 12:04 → MS2 14:50
PROVIDERS: ADMIT Internal Medicine; ATTEND Internal Medicine
DX: D62 Acute posthemorrhagic anemia; K21.9 Gastro-esophageal reflux disease without esophagitis; Z98.84 Bariatric surgery status; D72.828 Other elevated white blood cell count; B02.7 Disseminated zoster; K29.61 Other gastritis with bleeding; Z95.0 Presence of cardiac pacemaker; K25.4 Chronic or unspecified gastric ulcer with hemorrhage; Z98.0 Intestinal bypass and anastomosis status; I10 Essential (primary) hypertension; Z79.899 Other long term (current) drug therapy